=== PATIENT | female | born 1960 | race Caucasian/White ===

== ENCOUNTER 2016-06-28 17:53 | Emergency (ER) ==
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
[2016-06-28] MEDS ORDERED: NORCO-5 PO ONE (20:34)
[2016-06-28 21:32] VITALS: BP 142/64
--- NOTE | 2016-06-29 07:39 | Diag Imaging Result Document ---
PROCEDURE NAME: CERVICAL SPINE COMPLETE - 06/28/2016 CERVICAL SPINE, 6 VIEWS: COMPARISON: None. FINDINGS: Alignment is anatomic. Vertebral body heights are preserved. There is moderate disk space narrowing at C6-7 with degenerative osteophytes. The facet and uncovertebral joints are well preserved. Soft tissues are clear. IMPRESSION: Mild cervical spondylosis. No acute injury.
== END 2016-06-28 21:31 | disposition home or self-care (01) ==
LOC: ED 17:53
DX: M54.2 Cervicalgia (principal); M25.519 Pain in unspecified shoulder; Z79.899 Other long term (current) drug therapy; Z79.82 Long term (current) use of aspirin; V43.52XA Car driver injured in collision with other type car in traffic accident, initial encounter
CPT/HCPCS: 72050; 99283